=== PATIENT | female | born 2000 | race Caucasian/White ===

== ENCOUNTER → 2025-10-14 | Outpatient (REF) | payer OTHER | LOC: M PLALAB 08:54 | PROVIDERS: ATTEND Nurse Practitioner Family | DX: Z34.80 Encounter for supervision of other normal pregnancy, unspecified trimester (principal) ==

== ENCOUNTER → 2025-10-14 | Outpatient (CLI) | payer OTHER ==
[2025-10-14 10:17] LABS: PLATELET COUNT, AUTOMATED 326 10^3/uL (150-450)
[2025-10-14 11:21] LABS: Trichomonas vaginalis (AMP) NOT DETECTED (NEGATIVE)
[2025-10-14 11:44] LABS: GC DNA AMPLIFICATION NEGATIVE (NEGATIVE)
[2025-10-14 13:53] LABS: HIV 1&2 SCREEN NEGATIVE (NEGATIVE)
[2025-10-14 14:02] LABS: HEPATITIS C VIRUS ABY INDEX < 0.02 INDEX (<0.8)
== END ==
LOC: M PLALAB 09:09
PROVIDERS: ATTEND Nurse Practitioner Family
DX: Z34.80 Encounter for supervision of other normal pregnancy, unspecified trimester (principal)